=== PATIENT | male | born 1930 | race African-American/Black ===

== ENCOUNTER 2021-01-01 09:17 | Emergency (ER) | payer MEDICARE ==
[~2021-01-01] VITALS: Ht 177.8 cm; Wt 73.0 kg
[2021-01-01] MEDS ORDERED: HYDROCODONE/ACETAMINOPHEN 5/325MG TABLET PO ONE (10:45)
[2021-01-01 11:23] LABS: BASOPHILS % 0.5 % (0.0-2.0); EOSINOPHILS % 0.5 % (0.0-5.0); HEMATOCRIT. 24.1 % (42.0-52.0); HEMOGLOBIN. 8.1 g/dL (14.0-18.0); LYMPHOCYTES % 13.9 % (20.0-50.0); MEAN CORPUSCULAR HEMOGLOBIN 32.1 pg (28.0-32.0); MEAN CORPUSCULAR VOLUME 95.7 fL (80.0-94.0); MEAN PLATELET VOLUME 9.3 fl (7.4-10.4); MONOCYTES % 13.1 % (2.0-8.0); PLATELET 119 x1000/uL (130-400); RED BLOOD CELL COUNT 2.52 mill/uL (4.7-6.1); RED CELL DISTRIBUTION WIDTH 13.7 % (11.6-14.6)
[2021-01-01 11:26] LABS: CHLORIDE 98 mEq/L (98-107)
[2021-01-01 11:27] LABS: INR 1.3; PROTHROMBIN TIME 13.3 sec (9.6-11.0)
[2021-01-01] MEDS ORDERED: SODIUM POLYSTYRENE SULFONATE 15 G/60 ML BOT PO NR (16:00)
[2021-01-01 16:58] LABS: CLARITY URINE CLEAR (CLEAR); COLOR URINE YELLOW (YELLOW); KETONES URINE NEGATIVE (NEGATIVE); LEUKOCYTE ESTERASE URINE NEGATIVE (NEGATIVE); NITRITE URINE NEGATIVE (NEGATIVE); OCCULT BLOOD URINE NEGATIVE (NEGATIVE); PROTEIN URINE 3+ (NEGATIVE); SPECIFIC GRAVITY URINE 1.017 (1.005-1.030)
[2021-01-01 18:02] VITALS: BP 116/61
== END 2021-01-01 18:19 | disposition admitted as inpatient to this hospital (09) ==
LOC: ER 09:17 → SUPCPDRO 15:40 → ER 18:19 → CANBEDREQ 19:50
DX: M25.551 Pain in right hip (principal); I50.9 Heart failure, unspecified; R51.9 Headache, unspecified; I49.9 Cardiac arrhythmia, unspecified; Z79.82 Long term (current) use of aspirin; Z20.822 Contact with and (suspected) exposure to COVID-19
CPT/HCPCS: 36415; 71045; 73502; 73552; 80053; 81003; 83880; 84484; 85025; 87426; 93005; 99285